=== PATIENT | male | born 1980 ===

== ENCOUNTER → 2023-05-01 | Outpatient (CLI) | payer OTHER ==
[~2023-05-01] MED LIST: CRUTCH2 XX; HYDACE5 PO; IBUP800 PO; NAPR500 PO; TRAM50 PO
[2023-05-01 16:23] LABS: BASOPHILS ABSOLUTE AUTO 0.08 K/mm3 (0.00-0.23); BASOPHILS PERCENT AUTO 1 % (0-2); EOSINOPHILS ABSOLUTE AUTO 0.24 K/mm3 (0.00-0.68); EOSINOPHILS PERCENT AUTO 3 % (0-6); Hematocrit 41.1 % (37.0-53.0); Hemoglobin 13.9 g/dL (13.5-17.5); IMMATURE GRAN ABSOLUTE AUTO 0.03 K/mm3 (0.00-0.10); IMMATURE GRAN PERCENT AUTO 0 % (0-1); LYMPHOCYTES ABSOLUTE AUTO 2.07 K/mm3 (0.84-5.20); LYMPHOCYTES PERCENT AUTO 29 % (21-46); MONOCYTES ABSOLUTE AUTO 0.47 K/mm3 (0.16-1.47); MONOCYTES PERCENT AUTO 7 % (4-13); Mean Corpuscular HGB 30.5 pg (26.0-34.0); Mean Corpuscular HGB Conc 33.8 g/dL (31.5-36.5); Mean Corpuscular Volume 90 fL (80-100); Mean Platelet Volume 9.3 fL (9.1-12.4); NEUTROPHILS PERCENT AUTO 59 % (41-73); Platelet Count 304 K/mm3 (150-400); RDW Coefficient Variation 12.7 % (11.7-14.2); RDW Standard Deviation 42.3 fL (35.1-46.3); Red Blood Cell Count 4.55 M/mm3 (4.30-5.90); White Blood Cell Count 7.09 K/mm3 (4.00-11.30)
[2023-05-01 16:35] LABS: Albumin, Blood 4.5 g/dL (3.4-5.0); Albumin/Globulin Ratio 1.3 (0.8-1.8); Bilirubin, Total 0.6 mg/dL (0.1-1.0); Calcium, Blood 9.2 mg/dL (8.5-10.1); Creatinine, Blood 1.15 mg/dL (0.60-1.20); Globulin, Blood 3.5 g/dL (2.2-4.0); Potassium, Blood 3.9 mmol/L (3.5-5.5)
== END | disposition home or self-care (01) ==
LOC: LAB SHORT 16:20
PROVIDERS: Physician Assistant
DX: R10.9 Unspecified abdominal pain (principal)
CPT/HCPCS: 80053; 82150; 83690; 85025

== ENCOUNTER 2023-08-24 11:37 | Day surgery (SDC) | payer OTHER ==
[~2023-08-24] VITALS: Ht 180.3 cm; Wt 103.0 kg
[2023-08-24] VITALS (14 sets, daily range): BP systolic 137–179; BP diastolic 70–102
[~2023-08-24 11:37] MED LIST changes: +CeFAZolin Sodium 2,000 MG in NS 100 ML IV SCH; +Lactated Ringer's 1,000 ML IV SCH
[2023-08-24] MEDS ORDERED: ZYRTEC10 M2 PO (15:29)
[2023-08-24] MEDS ORDERED: MONT10T PO (15:29)
[2023-08-24] MEDS ORDERED: ECONAZOLE NITRA30 GM TOP (15:30)
[2023-08-24] MEDS ORDERED: LOSARTAN POTASS25 M2 PO (15:30)
[2023-08-24] MEDS ORDERED: GLUCHON PO (15:31)
[2023-08-24] MEDS ORDERED: OMEP20ER PO (15:31)
--- NOTE | 2023-08-24 15:56 | NUR ---
History, Chart, Medications and Allergies reviewed before start of procedure. Ambulatory in Day Surgery with crutches. Pre-Op teaching done. Pt verbalizes understanding. Patient confirms NPO status and agrees with scheduled surgery. Patient reports completing Chlorhexadine shower X2 prior to admission to hospital. Surgical site prepped with 2% Chlorhexidine cloth wipe. Lungs clear T/O to Auscultation. Patient States Post-Procedure ride home has been arranged.
[2023-08-24] MEDS ORDERED: propofoL 20 ML IV ONE (16:03)
[2023-08-24] MEDS ORDERED: FentaNYL Citrate 50 MCG/ML 2 ML Injection ONE ×2 (16:03→18:13)
[2023-08-24] MEDS ORDERED: Lidocaine 2%-Epineph 1:200000 20 ML SDV ONE (16:10)
[2023-08-24] MEDS ORDERED: EpiNEPhrine 1 MG/1 ML 1ML Vial ONE (16:10)
[2023-08-24] MEDS ORDERED: Ondansetron HCl 2 MG / ML 2ML Vial ONE (16:19)
[2023-08-24] MEDS ORDERED: Ketorolac Tromethamine 30mg Vial ONE (16:19)
[2023-08-24] MEDS ORDERED: Dexamethasone Sod Phos 10 MG/ML 1ML VIAL ONE (16:19)
--- NOTE | 2023-08-24 16:43 | NUR ---
08/24/23 3853 DENI LI NOTED OPEN WOUNDS ON LEFT ANKLE AND FOOT PRIOR TO OR BRING BACK. PROVIDER AWARE.
[2023-08-24] MEDS ORDERED: Bisacodyl 10 MG Supp PR PRN (18:10)
[2023-08-24] MEDS ORDERED: Acetaminophen 325 MG TABLET PO PRN (18:10)
[2023-08-24] MEDS ORDERED: OxyCODONE HCL 5 MG TAB PO PRN (18:10)
[2023-08-24] MEDS ORDERED: Naloxone HCl 0.4MG / ML 1ML Vial IV PRN (18:10)
[2023-08-24] MEDS ORDERED: HYDROmorphone HCl/Pf 1MG SYR IV PRN (18:10)
[2023-08-24] MEDS ORDERED: Magnesium Hydroxide Conc 10 ML UDC PO PRN (18:10)
[2023-08-24] MEDS ORDERED: HYDROmorphone HCl/Pf 1MG SYR ONE (18:47)
--- NOTE | 2023-08-24 18:59 | NUR ---
PT ABLE TO DRESS SELF, UP WITH A STEADY GAIT, IV REMOVED CATH INTACT, WITH CLEAR SITE. CIRDULATION REMAINS INTACT. DRESSING REMAINS CDI. DISCHARGE INSTRUCTIONE PROVIDED.PT STATES PAIN IS AT A TOLERABLE LEVEL.
[2023-08-24] MEDS ORDERED: Docusate Sodium 100 MG Cap PO SCH (21:00)
== END 2023-08-24 22:53 | disposition home or self-care (01) ==
LOC: ORSCMMR 11:37 → ORD 11:37 → ORSCMMR 11:38 → ORD 13:00
PROVIDERS: Orthopaedic Surgery
PROC: 0SBD4ZZ Excision of Left Knee Joint, Percutaneous Endoscopic Approach (ICD-10-PCS; principal; 2023-08-24 15:30)
DX: S83.252A Bucket-handle tear of lateral meniscus, current injury, left knee, initial encounter (principal); M22.42 Chondromalacia patellae, left knee; X50.0XXA Overexertion from strenuous movement or load, initial encounter
CPT/HCPCS: J0171; J0690; J1100; J1170; J1885; J2405; J2704; J3010; J7120